=== PATIENT | female | born 2000 | race African-American/Black ===

== ENCOUNTER 2019-06-30 04:34 | Emergency (ER) | payer SELFPAY ==
[2019-06-30] MEDS ORDERED: Ketorolac Tromethamine 30 MG/ML VIAL ONE (04:42)
--- NOTE | 2019-06-30 07:28 | RAD ---
CHEST 1 VIEW: INDICATION: History of chest pain. COMPARISON: Prior exam dated 08/21/2009. FINDINGS: There are low lung volumes that accentuate the cardiac silhouette and pulmonary vasculature. No defi nite consolidation, pleural effusion, or pneumothorax is evident. No acute osseous abnormality is ev ident. IMPRESSION: No acute cardiopulmonary abnormality. Low lung volumes. POS: BH
--- NOTE | 2019-07-03 14:53 | EKG ---
Test Reason : Blood Pressure : / mmHG Vent. Rate : 084 BPM Atrial Rate : 084 BPM P-R Int : 138 ms QRS Dur : 078 ms QT Int : 362 ms P-R-T Axes : 049 026 023 degrees QTc Int : 427 ms Normal sinus rhythm with sinus arrhythmia No STEMI Normal ECG Confirmed by OSMAN MCNAMARA M.D. ([id number]), manuscript editor THAI BABCOCK ([id number] on 07/03/2019 2:52:56 PM Referred By: Confirmed By:OSMAN MCNAMARA M.D.
== END 2019-06-30 05:24 | disposition home or self-care (01) ==
LOC: ERS 04:34
DX: R07.89 Other chest pain (principal)
CPT/HCPCS: 71045; 93005; 94760; 96374; J1885

== ENCOUNTER 2019-09-25 03:57 | Emergency (ER) | payer SELFPAY ==
[2019-09-25 04:31] LABS: Bacteria/HPF 1+ HPF (None Seen); Bilirubin Negative (Negative); Blood, Urine 3+ (Negative); Clarity Turbid (Clear); Glucose, Urine (Dipstick) Normal (Negative); Ketone, Urine Negative (Negative); Leukocyte 500 Leu/uL (Negative); Nitrite Negative (Negative); Protein, Urine (Dipstick) 100 mg/dL (Neg-Trace); RBC/HPF Greater than 50 HPF (0-3); WBC/HPF Greater than 50 HPF (0-3)
== END 2019-09-25 04:53 | disposition home or self-care (01) ==
LOC: ERS 03:57
DX: O20.9 Hemorrhage in early pregnancy, unspecified (principal); O23.41 Unspecified infection of urinary tract in pregnancy, first trimester; Z3A.01 Less than 8 weeks gestation of pregnancy; Z79.899 Other long term (current) drug therapy
CPT/HCPCS: 81003; 81015; 87086

== ENCOUNTER 2019-11-03 18:51 | Emergency (ER) | payer MEDICAID, SELFPAY ==
[2019-11-03 19:33] LABS: #Eosinphils 0.1 thou/uL (0.0-0.7); #Lymphocytes 3.2 thou/uL (1.20-3.40); #Monocytes 0.5 thou/uL (0.11-0.59); #Neutrophils 5.3 thou/uL (1.40-6.50); %Basophils 0.2 % (0.0-1.0); %Eosinophils 0.6 % (0.0-10.0); %Lymphocytes 35.3 % (21.0-51.0); %Monocytes 5.9 % (0.0-10.0); Hemoglobin 12.2 g/dL (12.0-16.0); Mean Corpuscular HGB CONC 34.3 g/dL (32.0-36.0); Mean Corpuscular Hemoglobin 31.8 pg (27.0-31.0); Mean Corpuscular Volume 92.9 fL (78.0-98.0); Mean Platelet Volume 6.8 fL (7.4-10.4); Platelet Count 217 thou/uL (130-400); RBC Distribution Width 12.7 % (11.5-14.5); Red Blood Cell (RBC) Count 3.84 mill/uL (4.20-5.40); White Blood Cell (WBC) Count 9.1 thou/uL (4.8-10.8)
--- NOTE | 2019-11-03 20:45 | ULT ---
OB ULTRASOUND: Date: 11-03-2019 PROVIDED CLINICAL HISTORY: Vaginal bleeding FINDINGS: A single live intrauterine gestation is documented in breech presentation with heart rate of 14 7 beats/minute. Estimated gestational age based on today's examination is 18 weeks 4 days. Estimated weight is 244 +/- 35 grams. Amniotic fluid appears normal. The cervix appears adequate in lengt h. The placenta is posteriorly located, without evidence for previa. There is a focal circumscribed a sharyn of diminished echogenicity at the left lateral margin of the placenta that may reflect marginal a bruption. This measures approximately 2.6 cm in greatest dimension. The placenta appears otherwise no rmal. The visualized anatomy appears normal, with four-chamber heart, normal appearing kidneys, umbil ical cord insertion, and spine demonstrated. biometry: BPD 4.1 cm 18 weeks 3 days HC 16.2 cm 19 weeks 0 days AC 12.8 cm 18 weeks 3 days FL 2.8 cm 18 weeks 4 days IMPRESSION: 1. Single live intrauterine gestation as described above, 18 weeks 4 days by ultrasound. 2. Findings suggesting a small area of focal marginal placenta abruption. POS: SHAUNA
== END 2019-11-03 21:18 | disposition home or self-care (01) ==
LOC: ERS 18:51
DX: O20.0 Threatened abortion (principal); Z3A.18 18 weeks gestation of pregnancy
CPT/HCPCS: 36415; 76815; 84702; 85025; 86850; 86900; 86901

== ENCOUNTER 2019-11-06 14:22 | Emergency (ER) | payer MEDICAID, SELFPAY ==
[2019-11-06 15:26] LABS: #Eosinphils 0.1 thou/uL (0.0-0.7); #Lymphocytes 2.4 thou/uL (1.20-3.40); #Monocytes 0.5 thou/uL (0.11-0.59); #Neutrophils 5.1 thou/uL (1.40-6.50); %Basophils 0.4 % (0.0-1.0); %Eosinophils 0.6 % (0.0-10.0); %Lymphocytes 29.9 % (21.0-51.0); %Monocytes 6.3 % (0.0-10.0); %Neutrophils 62.7 % (42.0-75.0); Mean Corpuscular Hemoglobin 32.4 pg (27.0-31.0); Mean Corpuscular Volume 92.8 fL (78.0-98.0); Mean Platelet Volume 6.8 fL (7.4-10.4); Platelet Count 196 thou/uL (130-400); RBC Distribution Width 12.6 % (11.5-14.5); Red Blood Cell (RBC) Count 3.71 mill/uL (4.20-5.40); White Blood Cell (WBC) Count 8.1 thou/uL (4.8-10.8)
[2019-11-06 15:45] LABS: Anion Gap 7 mmol/L (10-20); BUN (Urea Nitrogen) 6 mg/dL (7.0-18.7); Calc. Creatinine Clearance 0 mL/min (70-130); Calcium 8.5 mg/dL (7.8-10.44); Carbon Dioxide 24 mmol/L (22-29); Chloride 108 mmol/L (98-107); Estimated GFR-MDRD Greater than 90; Glucose 81 mg/dL (70-105); Potassium 3.8 mmol/L (3.5-5.1); Sodium 135 mmol/L (136-145)
== END 2019-11-06 16:25 | disposition home or self-care (01) ==
LOC: ERS 14:22
DX: O20.0 Threatened abortion (principal); Z3A.18 18 weeks gestation of pregnancy
CPT/HCPCS: 36415; 80048; 85025; 99284

== ENCOUNTER 2019-12-02 08:19 | Emergency (ER) | payer MEDICAID, OTHER ==
[2019-12-02 10:14] LABS: Bilirubin Negative (Negative); Blood, Urine Trace (Negative); Clarity Turbid (Clear); Glucose, Urine (Dipstick) Normal (Negative); Ketone, Urine Negative (Negative); Leukocyte 500 Leu/uL (Negative); Nitrite Negative (Negative); Protein, Urine (Dipstick) 50 mg/dL (Neg-Trace); Specific Gravity, Urine 1.024 (1.002-1.036); Urobilinogen Normal mg/dL (Less than 2)
[2019-12-02 10:16] LABS: Bacteria/HPF 1+ HPF (None Seen)
== END 2019-12-02 10:48 | disposition home or self-care (01) ==
LOC: ERS 08:19
DX: O98.312 Other infections with a predominantly sexual mode of transmission complicating pregnancy, second trimester (principal); A60.00 Herpesviral infection of urogenital system, unspecified; O23.42 Unspecified infection of urinary tract in pregnancy, second trimester; Z3A.22 22 weeks gestation of pregnancy
CPT/HCPCS: 81003; 81015; 99283

== ENCOUNTER 2020-02-23 12:51 | Inpatient (IN) | payer OTHER ==
[2020-02-23 13:22] VITALS: BMI 41.1
[2020-02-23] MEDS ORDERED: hydrALAZINE 20 MG/ML VIAL SLOW IVP PRN (13:35)
--- NOTE | 2020-02-23 14:00 | PDOC.FPROB ---
FMR OB H&P: HPI - History of Present Illness Chief Complaint: Abdominal pain Indentification: 20yo @ 34.1 wks History of Present Illness: This morning developed right lateral abdominal pain that radiates to her right pelvis and wraps around to her right flank. Denies any other associated sx including dysuria, N/V/D, dyspepsia. She does note having [place] hx contractions for the last few weeks but states they are mild and this feels different. is significant for subchorionic hemorrhage causing 2 and 3T vaginal bleeding - pt denies any current bleeding. Chlamydia vaginal infection with negative NUHA a few months ago. Trichomonas vaginal infection and proteus UTI that pt did not orange picker rx for over course of a month. Pt did state she picked up her flagyl for her trich infection and completed it. Denies any vaginal bleeding/discharge, LOF, headaches, vision changes. Primary Care Physician: PCP: Juan HAWK FMR OB H&P: Current - Care : 4 Para: 2011 Gestational age: 34.1 Due date: 04/04/20 Dating Criteria: LMP and 18.4 wk sono Course/Complications: Subchorionic hemorrhage, low lying placenta, chlamydia, trich, hx of herpes - OB Labs Blood type: O RH: positive Antibody Screen: negative HIV: negative RPR: negative HepBsAg: negative Rubella: immune Gonorrhea: negative Chlamydia: negative (negative NUHA) 3 hour GTT: Passed GBS: unknown Additional labs: + Trich and BV - Anatomy Survey Anatomy survey: Borderline enlarged cisterna magna - Additional Ultrasound Additional: Growth US 1 week ago: [place] 84% FMR OB H&P: History - Past Medical History PMH: Herpes - OB History OB History: 2 term 1 miscarriage @ 8 weeks - [employer]ATE [employer]ER History [employer] History: Chlamydia infection - negative NUHA - Surgical History Sx History: Appy FMR OB H&P: Medications - Current Home Medications: Medication Instructions Recorded Confirmed Type Vitamin 1 tablet PO DAILY 01/05/16 02/23/20 History Allergies/Adverse Reactions: Allergies Allergy/AdvReac Type Severity Reaction Status Date / Time Penicillins Allergy Intermediate Rash Verified 05/26/19 19:48 FMR OB H&P: ROS - Review of Systems General: denies: fever/chills, fatigue Eyes: denies: vision changes, double vision ENT: denies: nasal congestion, rhinorrhea Cardiovascular: denies: palpitation, edema Respiratory: denies: cough, shortness of breath Gastrointestinal: reports: abdominal pain, cramping. denies: nausea, vomiting, diarrhea Genitourinary (Female): denies: incontinence, dysuria, polyuria, vaginal discharge, vaginal pain, vaginal bleeding Musculoskeletal: denies: pain, stiffness Neurologic: denies: numbness, weakness, headache Integumentary: denies: rash, lesions Hematologic/Lymphatic: denies: prolonged or excessive bleeding FMR OB H&P: Vital Signs - Maternal Vital signs: Vital Signs - First Documented Pulse Resp BP Pulse Ox 122 H 18 120/62 98 02/23/20 13:17 02/23/20 13:17 02/23/20 13:17 02/23/20 13:17 - Heart Tones Baseline: 155 Variability: moderate Acceleration: absent Deceleration: variable (single, small) Category: category 2 [place] contractions every: irritable baseline FMR OB H&P: Physical Exam - Physical Exam General: awake, alert and oriented HEENT: EOMI, MMM Neck: supple, FROM Heart: normal S1/S2, no edema Deviation from normal: Tachycardic General: CTAB, no respiratory distress Abdomen: soft, gravid Musculoskeletal: normal gait and station, pulses present Neurological: no focal deficit Skin: no rash, capillary refill <2 seconds Lymphatic: no unusual bruising or bleeding Psychiatric: intact recent and remote memory, good judgement and insight, normal mood and affect - Pelvic Exam SVE: Closed/Thick/High FMR OB H&P: A/P Disposition: Pyelonephritis - tachy, leukocytosis, CVA tenderness - start rocephin 2g q24 hr - 1L bolus and maintenance at 120ml x1 bag - scheduled acetaminophen Dispo: Admit to the floor for antibiotics and monitoring. Will continue to monitor contractions and assess for progression of labor. If any indications for labor progression will start steroids and consider nifedipine for tocolysis. Discussion: Date/Time: 02/23/20 2521 This H&P was discussed with Dr. Nino who agree with the above documentation and plan.
[2020-02-23] MEDS ORDERED: Acetaminophen 500 MG TAB PO SCH ×2 (14:15→22:45)
[2020-02-23] MEDS ORDERED: Sodium Chloride 0.9% 1,000 ML IV SCH ×2 (14:15→15:45)
[2020-02-23 14:29] LABS: #Eosinphils 0.1 thou/uL (0.0-0.7); #Lymphocytes 2.4 thou/uL (1.20-3.40); #Monocytes 1.1 thou/uL (0.11-0.59); %Basophils 0.3 % (0.0-1.0); %Eosinophils 0.5 % (0.0-10.0); %Lymphocytes 19.4 % (21.0-51.0); %Monocytes 8.4 % (0.0-10.0); %Neutrophils 71.3 % (42.0-75.0); Hemoglobin 11.5 g/dL (12.0-16.0); Mean Corpuscular HGB CONC 33.3 g/dL (32.0-36.0); Mean Corpuscular Hemoglobin 29.5 pg (27.0-31.0); Mean Corpuscular Volume 88.6 fL (78.0-98.0); Platelet Count 251 thou/uL (130-400); RBC Distribution Width 13.4 % (11.5-14.5); White Blood Cell (WBC) Count 12.6 thou/uL (4.8-10.8)
[2020-02-23 14:36] LABS: Bacteria/HPF 4+ HPF (None Seen); Bilirubin Negative (Negative); Blood, Urine Negative (Negative); Clarity Turbid (Clear); Glucose, Urine (Dipstick) 300 mg/dL (Negative); Ketone, Urine Negative (Negative); Leukocyte 500 Leu/uL (Negative); Nitrite Negative (Negative); Protein, Urine (Dipstick) 10 mg/dL (Neg-Trace); Specific Gravity, Urine 1.011 (1.002-1.036); Squamous Epithelial 0-3 HPF (0-3); Urobilinogen Normal mg/dL (Less than 2); WBC/HPF Greater than 50 HPF (0-3); pH, Urine 6.5 (5.0-9.0)
[2020-02-23 14:38] LABS: Urine Culture Reflex Yes Yes
[2020-02-23 14:43] LABS: ALT (SGPT) 7 U/L (8-55); AST (SGOT) 11 U/L (5-34); Albumin 3.7 g/dL (3.5-5.0); Alkaline Phosphatase 113 U/L (40-110); Anion Gap 15 mmol/L (10-20); BUN (Urea Nitrogen) 5 mg/dL (7.0-18.7); Bilirubin, Total 0.3 mg/dL (0.2-1.2); Calc. Creatinine Clearance 249 mL/min (70-130); Calcium 8.7 mg/dL (7.8-10.44); Carbon Dioxide 19 mmol/L (22-29); Chloride 107 mmol/L (98-107); Globulin 3.1 g/dL (2.4-3.5); Glucose 65 mg/dL (70-105); Potassium 3.9 mmol/L (3.5-5.1); Protein, Total 6.8 g/dL (6.0-8.3); Sodium 137 mmol/L (136-145)
[2020-02-23] MEDS ORDERED: cefTRIAXone\\ROCEPHIN 1 GM in Sodium Chloride 0.9% 100 ML IVPB SCH (15:00)
[2020-02-23] MEDS ORDERED: cefTRIAXone\\ROCEPHIN 2 GM in Sodium Chloride 0.9% 100 ML IVPB SCH (15:15)
--- NOTE | 2020-02-23 15:20 | ULT ---
US Biophysical Profile History: Vaginal bleeding Comparison: None. Findings: Real-time grayscale, color and spectral analysis of the gravid uterus was performed. Single viable intrauterine with heart rate documented at 136 bpm. The biophysical pro file score measures 8/8. Amniotic fluid index: 11 cm. Biparietal diameter: 8.62 cm, 34 week 5 day Head circumference: 30.66 cm, 34 week 1 day Abdominal circumference: 30.9 cm, 34 weeks 6 day Femur length: 6.79 cm, 34 weeks 6 day position is vertex and the placenta is posterior. No placenta previa. Impression: Normal single viable . Cervix not well seen. Biophysical profile score 8/8.
--- NOTE | 2020-02-23 15:29 | ULT ---
OB Ltd History: Biophysical profile Comparison: None. Findings: Biophysical profile score measures 8/8 Impression: Biophysical profile score measures 88
[2020-02-23] MEDS ORDERED: Ondansetron PF 4 MG/2 ML Vial IVP PRN (15:44)
[2020-02-23] MEDS ORDERED: Ondansetron ODT 4 MG TAB PO PRN (15:44)
[2020-02-23] MEDS ORDERED: Fluconazole 100 MG TAB PO SCH (16:15)
[2020-02-23] MEDS: metroNIDAZOLE 500 MG TAB PO SCH (21:58)
[2020-02-23] MEDS ORDERED: Morphine 4 MG/ML VIAL SLOW IVP SCH (22:45)
--- NOTE | 2020-02-23 23:19 | PDOC.BPN ---
<Daina Ortiz - Last Filed: 02/23/20 23:56> - Brief Progress Note Encounter Date: 02/23/20 Encounter Time: 23:00 20yo @ 34.1 wks, GISELE 04/04/2020 Labor -34.1 today -cl/th/hi @1730 -//hi @ 2300, labor, FHTs cat 1, cxn q4min -start betamethasone -stadol for pain -cefazolin for GBS ppx (unknown GBS status) due to PCN allergy -Recheck in 4 hours Pyelonephritis vs Renal lithiasis - tachy, leukocytosis, CVA tenderness - UA shows infection - rocephin 2g q24 hr, will DC as cefazolin will cover - LR increased to 250 ml/hr - Renal US ordered Trich and BV -Metronidazole 500 mg BID Candidiasis -1x dose fluconazole Dispo: Admitted for labor and pyelonephritis. Betamethasone and GBS ppx started. Continue to monitor. Discussion: <Willam De La Garza - Last Filed: 02/24/20 13:09> Addendum - Attending - Attending Attestation Date/Time: 02/24/20 1308 I personally evaluated the patient and discussed the management with the team. I agree with the History, Examination, Assessment and Plan documented above with any addition or exceptions noted below.
[2020-02-23] MEDS ORDERED: Butorphanol Tartrate 1 MG/ML VIAL ONE (23:29)
[2020-02-23] MEDS: Butorphanol Tartrate 1 MG/ML VIAL SLOW IVP PRN (23:31)
[2020-02-24 00:02] LABS: SARS-CoV-2 MS2 Positive; SARS-CoV-2 N Gene Negative; SARS-CoV-2 S Gene Negative; SARS-CoV-2 by NAA Not Detected (NotDetected); SARS-CoV-2 orf1ab Negative
[2020-02-24] MEDS ORDERED: Promethazine HCl 25 MG/ML VIAL IM PRN (00:03)
[2020-02-24] MEDS: Betamet Acet/Betamet Na Ph 30 MG/5 ML VIAL IM SCH ×2 (00:21→23:55)
[2020-02-24] MEDS: CEFAZOLIN 2 GM in Premix Bag 1 BAG IVPB SCH ×3 (00:22→00:30)
[2020-02-24] MEDS: Sodium Chloride 0.9% 1,000 ML IV SCH ×3 (00:28→09:53)
[2020-02-24] MEDS: Acetaminophen 650 MG Suppository PR SCH ×2 (04:05→07:36)
[2020-02-24] MEDS: Butorphanol Tartrate 1 MG/ML VIAL SLOW IVP PRN ×5 (04:11→21:56)
--- NOTE | 2020-02-24 04:22 | PDOC.BPN ---
- Brief Progress Note 20yo @ 34.2 wks, GISELE 04/04/2020 Labor -34.2 -cl/th/hi @1730 -4/th/hi @ 2300, labor, FHTs cat 1, cxn q4min -4/thick/high@ 0420: unchanged from 2300 -FHT: Cat 1, baseline of 130 -first dose of steroids at 0021 @ 02/23. Will need repeat dose tomorrow. -stadol for pain -cefazolin for GBS ppx (unknown GBS status) due to PCN allergy -Recheck in 4 hours Pyelonephritis vs Renal lithiasis - tachy, leukocytosis, CVA tenderness - UA shows infection - rocephin 2g q24 hr, will DC as cefazolin will now cover - LR increased to 250 ml/hr - Renal US ordered, official read pending Trich and BV -Metronidazole 500 mg BID Candidiasis -1x dose fluconazole Dispo: Admitted for labor and pyelonephritis. Betamethasone and GBS ppx started. Continue to monitor.
[2020-02-24 05:09] LABS: #Lymphocytes 1.4 thou/uL (1.20-3.40); #Monocytes 0.2 thou/uL (0.11-0.59); #Neutrophils 10.8 thou/uL (1.40-6.50); %Basophils 0.2 % (0.0-1.0); %Eosinophils 0.1 % (0.0-10.0); %Monocytes 1.7 % (0.0-10.0); Hemoglobin 10.6 g/dL (12.0-16.0); Mean Corpuscular HGB CONC 32.3 g/dL (32.0-36.0); Mean Corpuscular Hemoglobin 27.9 pg (27.0-31.0); Mean Corpuscular Volume 86.4 fL (78.0-98.0); Mean Platelet Volume 6.9 fL (7.4-10.4); Platelet Count 232 thou/uL (130-400); RBC Distribution Width 13.3 % (11.5-14.5); Red Blood Cell (RBC) Count 3.78 mill/uL (4.20-5.40); White Blood Cell (WBC) Count 12.4 thou/uL (4.8-10.8)
[2020-02-24 05:28] LABS: Anion Gap 13 mmol/L (10-20); BUN (Urea Nitrogen) Less than 4 mg/dL (7.0-18.7); Calc. Creatinine Clearance 249 mL/min (70-130); Calcium 8.3 mg/dL (7.8-10.44); Carbon Dioxide 18 mmol/L (22-29); Chloride 111 mmol/L (98-107); Glucose 138 mg/dL (70-105); Potassium 3.9 mmol/L (3.5-5.1); Sodium 138 mmol/L (136-145)
[2020-02-24 05:48] LABS: HBSAg Index 0.17 S/CO (0-0.99); Hep B Surf Ag Non-Reactive S/CO (NonReactive); Syphilis Antibody Nonreactive (Nonreactive); Syphilis Antibody Index 0.03 S/CO (<1.00 Non-Reactive)
--- NOTE | 2020-02-24 07:37 | ULT ---
PRELIMINARY REPORT/[facility]/EMERGENCY AFTER HOURS PROCEDURE EXAM: US Retroperitoneum complete, Renal. CLINICAL HISTORY: HX: SEVER RT FLANK PAIN, 34WKS PREG TECHNIQUE: Real-time ultrasound of the retroperitoneum (complete) with image documentation. COMPARISON: None provided. FINDINGS: RIGHT KIDNEY: No renal stone, or mass visualized. Measures 14.2 x 6.6 x 5.7 cm and demonstrates moderate hydronep hrosis LEFT KIDNEY: No renal stone, or mass visualized. Measures 12.0 x 5.7 x 4.5 cm and demonstrates mild hydronephros is BLADDER: No evidence for calculi or masses. Bilateral ureteral jets are seen IMPRESSION: Bilateral hydronephrosis, moderate on the RIGHT and mild on the LEFT ELECTRONICALLY SIGNED BY: Vincent Guerrero MD Feb 24, 2020 1:31:46 AM DISTRICT REPRESENTATIVE This report is intended for review by the ordering physician only, in accordance of law. If you recei ve this report in error, please call [facility] at [phone]. FINAL REPORT US Renal Bilateral STANDARD History: Pain Comparison: None. Findings/Impression: Concordant with the initial report. Transcribed Date/Time: 02/24/2020 8:12 AM
[2020-02-24] MEDS ORDERED: ceFAZolin 1 GM/D5W 1 GM in Premix Bag 1 BAG IVPB SCH (08:00)
[2020-02-24] MEDS ORDERED: Clindamycin/D5W 900 MG in Premix Bag 1 BAG IVPB SCH (08:00)
[2020-02-24] MEDS: Prenatal Vitamin 1 TAB PO SCH (08:15)
[2020-02-24] MEDS: metroNIDAZOLE 500 MG TAB PO SCH ×2 (08:15→21:41)
--- NOTE | 2020-02-24 10:09 | PDOC.LDPN ---
Labor & Delivery Progress Note - Subjective Subjective: other (pain in RLQ, uncomfortable) - Objective Vital signs reviewed and normal: yes General: NAD Uterine fundus: non tender (is moderately TTP over RLQ, and mild TTP over Right CVA) SVE: by Marek Dilation: 1.5 on inner os (outer os is 4) Effacement: 0% Station: -3 FHT: category 1, variability present [place] contractions every: 7-8 min - Assessment (1) Pyelonephritis Code(s): N12 - TUBULO-INTERSTITIAL NEPHRITIS, NOT SPCF ACUTE OR CHRONIC Current Visit: Yes Status: Acute (2) Trichomonas infection Current Visit: Yes Status: Acute (3) Bacterial vaginosis Code(s): N76.0 - ACUTE VAGINITIS; B96.89 - OTH BACTERIAL AGENTS THE CAUSE OF DISEASES CLASSD ELSWHR Current Visit: Yes Status: Acute (4) Nica vaginitis Code(s): B37.3 - CANDIDIASIS OF VULVA AND VAGINA Current Visit: Yes Status: Acute (5) E. coli infection Current Visit: Yes Status: Acute Plan: continue plan of care -: 20yo @ 34.2 wks, GISELE 04/04/2020 Labor -34.2 wga today -cl/th/hi @1730 -4/th/hi @ 2300, labor, FHTs cat 1, cxn [id number] OUTER OS IS 4, INNER OS is 1 -1/thick/high@ 0420: unchanged from 2300 -1 (inner os)/thick/high @ 0900, unchanged -FHT: Cat 1, baseline of 140, contractions q7-8 min -first dose of steroids at 0021 @ 02/23. Will need repeat dose tomorrow. -stadol for pain -cefazolin for GBS ppx (unknown GBS status) due to PCN allergy -Recheck in 4 hours Pyelonephritis vs Renal lithiasis - tachy, leukocytosis, CVA tenderness - Urine culture results preliminary for presumptive E. Coli infection - rocephin 2g q24 hr, will DC as cefazolin will now cover - LR increased to 250 ml/hr - Renal US: no stone seen, moderate hydronephrosis on right, mild hydronephrosis on left Trich and BV -Metronidazole 500 mg BID Candidiasis -1x dose fluconazole Dispo: Admitted for labor and pyelonephritis. Betamethasone and antibiotics started. Continue to monitor on L&D.
[2020-02-24] MEDS ORDERED: Butorphanol Tartrate 1 MG/ML VIAL ONE (12:06)
--- NOTE | 2020-02-24 14:24 | PDOC.LDPN ---
Labor & Delivery Progress Note - Subjective Subjective: comfortable (after receiving stadol) - Objective Vital signs reviewed and normal: yes General: NAD SVE: deferred FHT: category 1 [place] contractions every: 8min -: 20yo @ 34.2 wks, GISELE 04/04/2020 @ 34wks -34.2 wga today -cl/th/hi @1730 -4/th/hi @ 2300, labor, FHTs cat 1, cxn [id number]--[id number] OUTER OS IS 4, INNER OS is 1 -1/thick/high@ 0420: unchanged from 2300 -1 (inner os)/thick/high @ 0900, unchanged -@ 1300: deferred check at this time due to no change last 3 checks and ctx spaced out -FHT: Cat 1, baseline of 140, contractions q7-8 min -first dose of steroids at 0021 @ 02/23. Will need repeat dose tomorrow. -stadol for pain -cefazolin for GBS ppx (unknown GBS status) due to PCN allergy -Recheck in 4 hours Pyelonephritis vs Renal lithiasis - tachy, leukocytosis, CVA tenderness - Urine culture results preliminary for presumptive E. Coli infection - rocephin 2g q24 hr, will DC as cefazolin will now cover - LR increased to 250 ml/hr - Renal US: no stone seen, moderate hydronephrosis on right, mild hydronephrosis on left Trich and BV -Metronidazole 500 mg BID Candidiasis -1x dose fluconazole Dispo: Admitted for abdominal pain 2/2 pyelonephritis vs nephrolithiasis. Continue to monitor on L&D.
[2020-02-24] MEDS ORDERED: cefTRIAXone\\ROCEPHIN 2 GM in Sodium Chloride 0.9% 100 ML IVPB SCH ×2 (15:00→16:15)
--- NOTE | 2020-02-24 20:56 | PDOC.BPN ---
- Brief Progress Note Encounter Date: 02/24/20 Encounter Time: 21:00 Patient sleeping, resting comfortably in bed. Does not endorse contractions or vaginal pressure. Good movement, no LOF, VB. Reactive strip, baseline at 130bpm. Patient is afebrile. Other vitals WNL. Will continue current plan of care, however will switch to intermittent monitoring on the floor. Plan discussed with Dr Ortiz and Dr De La Garza who agree with the above plan.
[2020-02-25] MEDS: Butorphanol Tartrate 1 MG/ML VIAL SLOW IVP PRN ×6 (03:08→19:15)
[2020-02-25] MEDS: Acetaminophen 500 MG TAB PO PRN ×2 (04:06→14:53)
[2020-02-25] MEDS: diphenhydrAMINE 50 MG/ML VIAL IVP SCH (04:37)
--- NOTE | 2020-02-25 06:47 | PDOC.OBAPN ---
FMR OB AP PN: Sub - Interval History Hospital Day: 3 Chief Complaint: Abdominal and Back pain Indentification: 20 yo @ 34.3 wga Interval History: Continues to complain of moderate abdominal & back pain. Denies dysuria. FMR OB AP PN: Obj - Maternal Vital signs: BP: [] HR: [] RR: [] Tmax: [] Pox: []% on [] Wt: [] FMR OB AP PN: A/P - Problem List (1) Pyelonephritis Current Visit: Yes Status: Acute Code(s): N12 - TUBULO-INTERSTITIAL NEPHRITIS, NOT SPCF ACUTE OR CHRONIC (2) Trichomonas infection Current Visit: Yes Status: Acute (3) Bacterial vaginosis Current Visit: Yes Status: Acute Code(s): N76.0 - ACUTE VAGINITIS; B96.89 - OTH BACTERIAL AGENTS THE CAUSE OF DISEASES CLASSD ELSWHR (4) Nica vaginitis Current Visit: Yes Status: Acute Code(s): B37.3 - CANDIDIASIS OF VULVA AND VAGINA (5) E. coli infection Current Visit: Yes Status: Acute Discussion: Date/Time: 02/25/20 0646 This H&P was discussed with [] and [] who agree with the above documentation and plan. - Allergies/Adverse Reactions Allergies Allergy/AdvReac Type Severity Reaction Status Date / Time Penicillins Allergy Intermediate Rash Verified 05/26/19 19:48 - Home Medications Medication Instructions Recorded Confirmed Type Vitamin 1 tablet PO DAILY 01/05/16 02/23/20 History - History PMHx: PSHx: FHx: Social:
--- NOTE | 2020-02-25 06:56 | PDOC.LDPN ---
Labor & Delivery Progress Note - Subjective Subjective: other (abdominal & back pain) - Objective Vital signs reviewed and normal: yes (99.4F, HR 104, BP 124/75, RR 20) General: NAD (Heart RRR, Lungs CTAB) Uterine fundus: non tender (RLQ and LLQ TTP, fundus nontender, CVA tenderness on Right, no edema) FHT: category 1 (intermittent monitoring) [place] contractions every: random - Assessment (1) Pyelonephritis Code(s): N12 - TUBULO-INTERSTITIAL NEPHRITIS, NOT SPCF ACUTE OR CHRONIC Current Visit: Yes Status: Acute (2) Trichomonas infection Current Visit: Yes Status: Acute (3) Bacterial vaginosis Code(s): N76.0 - ACUTE VAGINITIS; B96.89 - OTH BACTERIAL AGENTS THE CAUSE OF DISEASES CLASSD ELSWHR Current Visit: Yes Status: Acute (4) Nica vaginitis Code(s): B37.3 - CANDIDIASIS OF VULVA AND VAGINA Current Visit: Yes Status: Acute (5) E. coli infection Current Visit: Yes Status: Acute Plan: continue plan of care -: 20yo @ 34.2 wks, GISELE 04/04/2020 Patient feeling slightly better this morning. Continues to complain of lower abdominal and back pain. Denies dysuria or burning with urination. Has been drinking liquids and eating few crackers, otherwise poor PO intake. Was able to sleep some last night after given stadol, tylenol, and benadryl. @ 34wks -34.3 wga today -1 (inner os)/thick/high @ 0900 on 02/23, unchanged on the prior 3 checks and ctx spaced out -FHT on 02/23 pm shift: Cat 1, contractions intermittent -completed 2 doses of betamethasone -stadol & tylenol for pain -cefazolin for GBS ppx (unknown GBS status) due to PCN allergy, discontinued and switched to Rocephin for better coverage of E. Coli and not currently in labor Pyelonephritis vs Renal lithiasis vs complicated UTI - tachy, leukocytosis, CVA tenderness - Urine culture results positive for E. Coli infection, sensitive to all - rocephin 2g q24 hr - LR @ 75 mL/hr - Renal US: no stone seen, moderate hydronephrosis on right, mild hydronephrosis on left Trich and BV -Metronidazole 500 mg BID Candidiasis -1x dose fluconazole Dispo: Admitted to [facility] for abdominal pain 2/2 pyelonephritis vs nephrolithiasis. Continue intermittent monitoring. Continue antibiotics. Anticipate discharge in next 48 hours. Addendum - Attending - Attending Attestation Date/Time: 02/25/20 6466 I personally evaluated the patient and discussed the management with Dr. Jara I agree with the History, Examination, Assessment and Plan documented above with any addition or exceptions noted below - Still having some right lower quadrant colicky pain. Afebrile VSS A/P: 1) E. coli pyelonephritis- pedraza sensitive on culture- will give IV rocephin today nad then convert to po abx. 2) labor- s/p steroids x 2 doses; no further cervical change.
[2020-02-25] MEDS: Lactated Ringer's 1,000 ML IV SCH ×2 (07:45→07:49)
[2020-02-25] MEDS: metroNIDAZOLE 500 MG TAB PO SCH ×2 (08:01→21:30)
[2020-02-25] MEDS: Prenatal Vitamin 1 TAB PO SCH (08:01)
[2020-02-25] MEDS ORDERED: Lactated Ringer's 1,000 ML IV SCH (14:15)
[2020-02-25] MEDS ORDERED: cefTRIAXone\\ROCEPHIN 2 GM in Sodium Chloride 0.9% 100 ML IVPB SCH (15:00)
[2020-02-25 16:44] VITALS: BP 138/75; TEMP 98.4
--- NOTE | 2020-02-25 17:09 | PDOC.BPN ---
<Freda Dwyer - Last Filed: 02/25/20 17:40> - Brief Progress Note Encounter Date: 02/25/20 20yo @ 34.2wks diagnosed with pyelonephritis. UCx grew e. coli pansensitive. Today is day 3 of treatment with rocephin. Throughout the day today the patient has continued to complain of abdominal pain. Earlier in admission the pain was located in RLQ but today she reports it as located on both RLQ and LLQ. She reports increases pain and contractions. Previously her pain was controlled with tylenol and stadol but today it has not provided relief. She was placed on the monitor and baby had normal reactivity for age. Ctx q2-4min. SVE was unchanged from previous checks /. VS: SBP 138, HR 104, afebrile. Abd exam: soft, diffusely tender to palpation, no rigidity or guarding. Pending pelvic ultrasound. Urology was consulted and Dr Kwong recommended low dose CT stone protocol. Weighed risks vs benefits of 3T CT and felt it is best patient care to proceed. Will transfer back to obstetrics for closer monitoring. Plan was discussed with patient including risks and benefits of CT scan. She voiced understanding and agreed to plan. <Willam De La Garza - Last Filed: 02/25/20 19:58> Addendum - Attending - Attending Attestation Date/Time: 02/25/201956 I was called by Dr. Savage and the team to discuss. I was under the impression that her pain had resolved but apparently is persistent. Stone > torsion > abruption or other etiology, such as PID. D/w Uro per Dr. Savage, who has seen the patient today.
--- NOTE | 2020-02-25 18:03 | CT ---
CT Stone Protocol: 02/25/2020 5:35 PM HISTORY: Flank pain in a female. COMPARISON: Renal ultrasound 02/23/2020 TECHNIQUE: Multiple contiguous axial images were obtained and a CT of the abdomen and pelvis without IV contrast . Coronal and sagittal reformats were performed. FINDINGS: This examination is limited for the evaluation of solid organs and vascular structures due to the lac k of intravenous contrast. Lower Chest: within normal limits. Abdomen: Liver: within normal limits. Bile Ducts: Normal caliber. Gallbladder: No calcified gallstones. Normal caliber wall. Pancreas: within normal limits. Spleen: within normal limits. Adrenals: within normal limits. Kidneys: Moderate right and mild left hydronephrosis. Pelvis: Reproductive Organs: The fetus is seen in the uterus in vertex presentation. Ureters: Moderate right hydroureter down to the level of the uterus low in the pelvis. No calcificati ons identified in the ureters. Bladder: within normal limits. Bowel: Normal caliber. Mesenteric Lymph Nodes: No enlarged mesenteric lymph nodes. Peritoneum: No ascites or free air, no fluid collection. Vessels: Normal caliber aorta Retroperitoneum: within normal limits. Abdominal Wall: within normal limits. Bones: Unremarkable. IMPRESSION: Bilateral hydronephrosis is likely secondary to compression of the uterus and head on the dista l ureters.
--- NOTE | 2020-02-25 19:35 | ULT ---
EXAM: Pelvic ultrasound HISTORY: Pelvic pain. Evaluate for ovarian torsion. COMPARISON: CT abdomen/pelvis 02/25/2020 TECHNIQUE: Multiple grayscale and color Doppler images were obtained in a transvaginal pelvic ultraso und. Spectral analysis of the Doppler waveforms of the ovaries were performed. FINDINGS: CERVIX: No evidence of nabothian cysts. UTERUS: Enlarged containing a fetus. A small amount of free fluid is seen in the pelvis. RIGHT OVARY: Not visualized. LEFT OVARY: Normal flow without focal mass. IMPRESSION: No evidence of left ovarian torsion.
[2020-02-25] MEDS ORDERED: diphenhydrAMINE 50 MG in Sodium Chloride 0.9% 50 ML IVPB PRN (20:52)
--- NOTE | 2020-02-25 21:48 | CON ---
DATE OF CONSULTATION: 02/25/2020 REQUESTING PHYSICIAN: Freda Dwyer MD REASON FOR CONSULTATION: Flank pain, hydroureteronephrosis, and pyelonephritis. HISTORY OF PRESENT ILLNESS: Ms. Rodríguez is a 20-year-old, 34 week female with no past urologic history, the patient began having right-sided flank pain associated with nausea and vomiting two days ago. The patient was evaluated and was admitted. She also was having dysuria and was having some [place] contractions over the past several weeks, which have worsened recently. Urine culture was obtained and this demonstrated E. coli. The patient has been on Rocephin since the time of her admission. The patient's flank pain was poorly controlled. An ultrasound was performed, which demonstrated right greater than left hydroureteronephrosis with no obvious urolithiasis. Urology was consulted for further evaluation. At this point, a CT scan was requested using low-dose radiation protocol. The patient states that her pain has improved slightly, but continues to be significant. Nausea has improved. No fevers. No history of febrile urinary tract infection in the past. No history of urolithiasis. No previous recurrent UTIs. No other complaints. REVIEW OF SYSTEMS: Full 12-point review of systems was performed and is negative other than that mentioned in HPI. PAST MEDICAL HISTORY: None. PAST SURGICAL HISTORY: None. FAMILY HISTORY: Noncontributory. SOCIAL HISTORY: No current alcohol, tobacco, or illicit drugs. ALLERGIES: PENICILLIN. HOME MEDICATIONS: vitamin. PHYSICAL EXAMINATION: VITAL SIGNS: Temperature 98.4, pulse 98, respirations 16, blood pressure 118/64, and oxygen saturation 99% on room air. GENERAL: She is awake and alert, and oriented x3, in no apparent distress. HEENT: Normocephalic and atraumatic. NECK: Supple. No masses or lymphadenopathy. CARDIOVASCULAR: Regular rate and rhythm. PULMONARY: Breathing unlabored. ABDOMEN: Soft. Mild right CVA tenderness. No left CVA tenderness. No suprapubic tenderness to palpation. Gravid uterus consistent with a 34 week . EXTREMITIES: Warm and well perfused. No edema. NEUROLOGIC: No focal deficits. LABORATORY DATA: White blood cell count 12.4, hemoglobin 10.6, hematocrit 32.7, and platelets 232. Sodium 138, potassium 3.9, chloride 111, bicarb 18, BUN 13, and creatinine 0.57. Microbiology, urinalysis with E. coli, greater than 100,000 colony-forming units, pansensitive. RADIOLOGY DATA: CT of the abdomen and pelvis demonstrates bilateral hydroureteronephrosis likely secondary to compression of the uterus on the distal ureters, right greater than left. There is no urolithiasis present. These films were reviewed and agreed with radiologist's interpretation. ASSESSMENT: A 20-year-old female with Escherichia coli urinary tract infection, flank pain, and possible pyelonephritis. PLAN: I reviewed the imaging and laboratory data with the patient and her mother in detail. I explained that there is no stone or significant obstruction present. She does have some physiologic hydroureteronephrosis of related to uterine compression. The patient is on culture specific antibiotics. Recommend continuing this. Her pain should improve with some time. There have been slow improvement since her admission, but she continues to have significant amounts of pain. She will require two week course of antibiotics. There is no indication for urologic intervention at this time. Thank you for allowing me to participate in the care of this patient. Job ID: [id number]
[2020-02-26] MEDS: Butorphanol Tartrate 1 MG/ML VIAL SLOW IVP PRN ×2 (02:05→09:04)
[2020-02-26] MEDS: diphenhydrAMINE 50 MG/ML VIAL IVP SCH (06:10)
[2020-02-26] MEDS: metroNIDAZOLE 500 MG TAB PO SCH (09:07)
[2020-02-26] MEDS: Prenatal Vitamin 1 TAB PO SCH (09:07)
--- NOTE | 2020-02-26 09:53 | PDOC.LDPN ---
Labor & Delivery Progress Note - Subjective Subjective: other (lower abdominal discomfort, painful contractions) - Objective Vital signs reviewed and normal: yes General: NAD, resting Uterine fundus: non tender SVE: closed/th/high at 0200 by RN Dilation: 0 Effacement: 0% Station: -3 FHT: category 1, variability present [place] contractions every: 7-8 min Other exam findings: mildly TTP over RLQ & LLQ, no edema, Heart RRR, Lungs CTAB - Assessment (1) Pyelonephritis Code(s): N12 - TUBULO-INTERSTITIAL NEPHRITIS, NOT SPCF ACUTE OR CHRONIC Current Visit: Yes Status: Acute (2) Trichomonas infection Current Visit: Yes Status: Acute (3) Bacterial vaginosis Code(s): N76.0 - ACUTE VAGINITIS; B96.89 - OTH BACTERIAL AGENTS THE CAUSE OF DISEASES CLASSD ELSWHR Current Visit: Yes Status: Acute (4) Nica vaginitis Code(s): B37.3 - CANDIDIASIS OF VULVA AND VAGINA Current Visit: Yes Status: Acute (5) E. coli infection Current Visit: Yes Status: Acute Plan: continue plan of care -: 20yo @ 34.4 wks, GISELE 04/04/2020 Patient feeling slightly better this morning. Continues to complain of lower abdominal pain, left greater than right. Describes as cramping, has sharper pain only with contractions. Contractions have spaced back out to every 7-8 minutes or so. Pain is relieved with Stadol and Benadryl. Patient refusing Tylenol. Denies dysuria or burning with urination. Has had good PO intake with meals yesterday, has not eaten yet this morning. Was able to sleep some last night after given benadryl. @ 34 wks -34.4 wga today -closed/thick/high @ 0200 on 02/25, unchanged on the prior 3 checks and ctx spaced out -FHT currently Cat 1, contractions about every 7-8 min -completed 2 doses of betamethasone on 02/24 -stadol & tylenol for pain -Rocephin x 3 days for coverage of E. Coli, will transition to PO antibiotic today UTI (most likely) vs Pyelonephritis (less likely) vs Renal lithiasis - tachy, leukocytosis, CVA tenderness - Urine culture results positive for E. Coli infection, sensitive to all - rocephin 2g q24 hr x 3 days completed on 02/24, transition to oral ABx today - LR @ 75 mL/hr - Renal US: no stone seen, moderate hydronephrosis on right, mild hydronephrosis on left - CT with stone protocol negative - TVUS normal, hydronephrosis likely due to compression on ureters bilaterally by uterus - Urology, Dr. Kwong consulted, appreciate recs--patient needs 2 weeks of oral antibiotics Trich and BV -Metronidazole 500 mg BID Candidiasis -1x dose fluconazole Dispo: Admitted to L&D for abdominal pain 2/2 UTI vs nephrolithiasis. Attempting to achieve better pain control today. Continue monitoring. Continue antibiotics. Anticipate discharge in next 24 hours. Addendum - Attending - Attending Attestation Date/Time: 02/26/20 1310 I personally evaluated the patient and discussed the management with Dr. Jara I agree with the History, Examination, Assessment and Plan documented above with any addition or exceptions noted below - Patient still having discomfort in RLQ and some in LLQ. Studies reviewed from yesterday and appreciate urology input/assistamce. A/P: 1) E. coli UTI - has received 3 doses of rocephin; will change to po keflex. 2) Pelvic pain - studies negative; suspect some of it may be discomfort of . Will give trial of flexeril. 3) BV - continue flagyl
[2020-02-26] MEDS ORDERED: diphenhydrAMINE 50 MG CAP PO PRN (11:22)
[2020-02-26] MEDS ORDERED: Cyclobenzaprine 10 MG TAB PO PRN (11:23)
[2020-02-26] MEDS ORDERED: Cyclobenzaprine 10 MG TAB PO SCH (11:30)
[2020-02-26] MEDS ORDERED: Cephalexin 250 MG CAP PO SCH ×3 (12:45→21:00)
[2020-02-26] MEDS ORDERED: Acetaminophen 500 MG TAB PO SCH (14:00)
[2020-02-26 18:53] LABS: Chlamydia by PCR Not Detected (NotDetected); GC by PCR Not Detected (NotDetected)
--- NOTE | 2020-02-27 18:52 | DIS ---
DATE OF ADMISSION: 02/23/2020 DATE OF DISCHARGE: 02/26/2020 RESIDENT: Isaura Jara DO ADMITTING ATTENDING: Willam De La Garza MD DISCHARGE ATTENDING: Marylu Miles MD CONSULT: Urology, Dr. Kwong. PROCEDURES PERFORMED: 1. Ultrasound on February 23, 2020: Biophysical profile score of 8/8. Single viable intrauterine . Placenta posterior. position, vertex. 2. Renal ultrasound on February 23, 2020: Bilateral hydronephrosis, moderate on the right and mild on the left. 3. Transvaginal ultrasound on February 25, 2020: No evidence of left ovarian torsion. Right ovary not visualized. 4. Abdomen and pelvis CT with stone protocol on February 25, 2020: Bilateral hydronephrosis is likely secondary to compression of the uterus and head on the distal ureters. No evidence of any stones or calcifications identified. PRIMARY DIAGNOSES: 1. Urinary tract infection, most likely. 2. Pyelonephritis, low suspicion. 3. at 34 weeks and 4 days at the time of discharge. SECONDARY DIAGNOSES: 1. Renal lithiasis, suspected. 2. Trichomonas infection. 3. Bacterial vaginosis infection. 4. Vaginal candidiasis. DISCHARGE MEDICATIONS: 1. vitamins. 2. Benadryl 50 mg p.o. q.6 hours p.r.n. 3. Cyclobenzaprine HCl 5 mg p.o. t.i.d. p.r.n. 4. Metronidazole 500 mg p.o. b.i.d. for three additional days. 5. Keflex 500 mg p.o. b.i.d. for 14 more days. 6. Acetaminophen 1000 mg p.o. q.8 hours p.r.n. DISCONTINUED MEDICATIONS: None. HISTORY OF PRESENT ILLNESS/HOSPITAL COURSE: The patient is a 20-year-old, G4, P2-0-1-2 at 34 weeks' gestational age, who presented to Labor and Delivery on February 23, 2020, with complaint of right lateral abdominal pain that radiated to her right pelvis and wrapped around to her right flank. She denied any other symptoms at that time. The patient had history of Chlamydia, vaginal infection with a negative test of cure a few months ago. Also had Trichomonas vaginal infection and Proteus UTI that the patient did not miner pick prescriptions for over the course of at least the past month. Based on the patient's history and physical exam findings, pyelonephritis was suspected and the patient was started on Rocephin 2 g and given IV fluids. She was admitted to Labor and Delivery for antibiotics and further monitoring. The patient also had intermittent contractions that were initially every 2 to 3 minutes that then spaced out to about every 10 minutes. The patient was started on betamethasone and given two total doses over 24-hour period due to suspicion of early labor upon admission. The following morning, the patient continued to feel uncomfortable. Her cervical check exams were consistently 1, thick, high throughout the course of her stay. The patient initially required Stadol for pain, which was continued over the following few days. On day of discharge, she had good pain control with Tylenol, Flexeril, and Benadryl. The patient was started on metronidazole for her Trichomonas and bacterial vaginosis infections. She was given fluconazole for her candidiasis infection. The patient was initially given cefazolin for GBS prophylaxis, but after labor was ruled out, this was discontinued and Rocephin was restarted for a total therapy course of 3 days of Rocephin. On day 3 of admission, the patient had progressive right lower quadrant and left lower quadrant pain. Further imaging studies were performed to rule out the possibility of ovarian torsion or other abdominal etiologies. All imaging has resulted negative for any pathology. There was some bilateral hydronephrosis suspected to be secondary due to compression of the ureters by the fetus. On the morning of February 26, 2020, the patient's discomfort was improving. Cultures resulted positive for E coli urinary tract infection. She was transitioned to p.o. Keflex, which will need to be continued for approximately 2 weeks per Urology recommendations. The patient was also given a trial of Flexeril for suspected pelvic pain from discomfort of . Flagyl will need to be continued for an additional 3 days for a total of 7-day course. The patient will need close followup with her PCP at [facility] on March 02. DISPOSITION: Stable. DISCHARGE INSTRUCTIONS: 1. Location: Home. 2. Diet: Regular. 3. Activity: As tolerated. 4. Follow up at [facility] on March 02, 2020. Job ID: [id number]
== END 2020-02-26 17:20 | disposition home health service (06) | DRG 831 ==
LOC: L&D/OP 12:51 → L&D 15:44 → OBSVTOIN 15:44 → UNDOADMOB 17:06 → L&D 17:06 → 3SW 02-24 21:54 → L&D 02-25 19:28
PROVIDERS: ADMIT Student in an Organized Health Care Education/Training Program; ATTEND Student in an Organized Health Care Education/Training Program
DX: O23.43 Unspecified infection of urinary tract in pregnancy, third trimester (principal); O60.03 Preterm labor without delivery, third trimester; O98.313 Other infections with a predominantly sexual mode of transmission complicating pregnancy, third trimester; O98.813 Other maternal infectious and parasitic diseases complicating pregnancy, third trimester; N13.6 Pyonephrosis; Z20.828 Contact with and (suspected) exposure to other viral communicable diseases; B96.20 Unspecified Escherichia coli [E. coli] as the cause of diseases classified elsewhere; A59.01 Trichomonal vulvovaginitis; B37.3 Candidiasis of vulva and vagina; N20.0 Calculus of kidney; B96.89 Other specified bacterial agents as the cause of diseases classified elsewhere; Z3A.34 34 weeks gestation of pregnancy
CPT/HCPCS: 36415; 51701; 74176; 76770; 76815; 76819; 76856; 80048; 80053; 81001; 85025; 86780; 86850; 86900; 86901; 87077; 87086; 87186; 87340; 87480; 87491; 87510; 87591; 87635; 87660; 99285; J0595; J0690; J0696; J0702; J1200; J2270; J2550; J3490; U0003

== ENCOUNTER 2020-03-26 08:15 | Outpatient (CLI) | payer OTHER ==
[2020-03-27 00:15] LABS: SARS-CoV-2 PCR by NAA Not Detected (NotDetected)
== END 2020-03-26 08:16 | disposition home or self-care (01) ==
LOC: LABBT 08:15
PROVIDERS: ATTEND Obstetrics & Gynecology
DX: Z01.812 Encounter for preprocedural laboratory examination (principal); Z20.822 Contact with and (suspected) exposure to COVID-19
CPT/HCPCS: 87635; U0003; U0005

== ENCOUNTER 2020-03-29 19:15 | Inpatient (IN) | payer OTHER ==
[~2020-03-29 19:15] MED LIST: Terbutaline Sulfate 1 MG/ML VIAL ONE
[2020-03-29 20:06] VITALS: BMI 38.0
[2020-03-29] MEDS ORDERED: Lidocaine 1% (PF) 30 ML VIAL SC PRN (21:08)
[2020-03-29] MEDS ORDERED: Ondansetron PF 4 MG/2 ML Vial IVP PRN (21:08)
[2020-03-29] MEDS ORDERED: NS / Oxytocin 40 units/1000ml 1,000 ML IV PRN (21:08)
[2020-03-29] MEDS ORDERED: hydrALAZINE 20 MG/ML VIAL SLOW IVP PRN (21:08)
[2020-03-29] MEDS ORDERED: Promethazine HCl 25 MG/ML VIAL IM PRN (21:08)
[2020-03-29] MEDS: Lactated Ringer's 1,000 ML IV SCH (21:15)
[2020-03-29 21:42] LABS: Hemoglobin 10.8 g/dL (12.0-16.0); Mean Corpuscular HGB CONC 33.2 g/dL (32.0-36.0); Mean Corpuscular Hemoglobin 27.5 pg (27.0-31.0); Mean Corpuscular Volume 82.8 fL (78.0-98.0); Mean Platelet Volume 7.6 fL (7.4-10.4); Platelet Count 229 thou/uL (130-400); RBC Distribution Width 14.6 % (11.5-14.5); Red Blood Cell (RBC) Count 3.93 mill/uL (4.20-5.40); White Blood Cell (WBC) Count 8.8 thou/uL (4.8-10.8)
--- NOTE | 2020-03-29 22:03 | PDOC.FPROB ---
FMR OB H&P: HPI - History of Present Illness Chief Complaint: eIOL History of Present Illness: Pt is a 20yo @ 39.1wks who presents for eIOL. She states she has been having contractions for weeks. Denies LOF, vaginal bleeding. +FM. Feels some vaginal pressure. Current is significant for subchorionic hemorrhage causing vaginal bleeding earlier in . Pyelonephritis requiring hospitalization. Chlamydia vaginal infection with negative NUHA. Trichomonas vaginal infection and proteus UTI, treated. Recently diagnosed vaginal candidiasis, untreated. History of HSV on acyclovir, no active lesions. Primary Care Physician: LITO Martinez FMR OB H&P: Current - Care : 4 Para: 2013 Gestational age: 39.1 Due date: 04/04/20 Dating Criteria: LMP and 18.4 wk sono Course/Complications: Subchorionic hemorrhage, chlamydia, trich, candidiasis, pyelonephritis, hx of herpes - OB Labs Blood type: O RH: positive Antibody Screen: negative HIV: negative RPR: negative HepBsAg: negative Rubella: immune Gonorrhea: negative Chlamydia: negative 3 hour GTT: passed GBS: positive H&H: 10.6/32.7 Platelets: 232 - Anatomy Survey Anatomy survey: borderline enlarged cisterna magna FMR OB H&P: History - Past Medical History PMH: HSV - OB History OB History: 2 term , 1 spontaneous requiring blood transfusion - 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 History 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 History: Chlamydia infection, negative NUHA - Surgical History Sx History: Appendectomy - Social History Social History: denies T/A/D FMR OB H&P: Medications - Current Home Medications: Medication Instructions Recorded Confirmed Type Vitamin 1 tablet PO DAILY 01/05/16 03/29/20 History valACYclovir HCl [Valacyclovir] 1 tab PO DAILY 03/29/20 03/29/20 History Allergies/Adverse Reactions: Allergies Allergy/AdvReac Type Severity Reaction Status Date / Time Penicillins Allergy Intermediate Rash Verified 05/26/19 19:48 FMR OB H&P: ROS - Review of Systems General: denies: fever/chills, fatigue Eyes: denies: vision changes, double vision ENT: denies: rhinorrhea, sore throat Cardiovascular: denies: chest pain, edema Respiratory: denies: cough, shortness of breath Gastrointestinal: denies: nausea, vomiting, diarrhea Genitourinary (Female): reports: contractions, vaginal pressure. denies: vaginal bleeding Musculoskeletal: denies: pain, stiffness Neurologic: denies: headache Integumentary: denies: rash, lesions Hematologic/Lymphatic: denies: prolonged or excessive bleeding FMR OB H&P: Vital Signs - Maternal Vital signs: BP 120/66, HR 85 - Heart Tones Baseline: 140 Variability: moderate Acceleration: present Deceleration: absent Category: category 1 [place] contractions every: 2-5min FMR OB H&P: Physical Exam - Physical Exam General: NAD, awake, alert and oriented HEENT: normocephalic and atraumatic, grossly normal vision, grossly normal hearing Neck: supple, FROM Heart: RRR, normal S1/S2 General: CTAB, no respiratory distress Abdomen: soft, gravid, non-tender Musculoskeletal: normal gait and station, FROM in all four extremities Neurological: cranial nerves II through XII intact, no focal deficit Skin: no rash, no jaundice Lymphatic: no unusual bruising or bleeding Psychiatric: intact recent and remote memory, normal mood and affect - Pelvic Exam Vulva: normal hair distribution Deviation from normal: no active HSV lesions, thick white discharge Cervix: no lesions SVE: 1/0/-3 Presentation: vertex confirmed with bedside sono FMR OB H&P: Results - Labs Lab results: Laboratory Results - last 24 hr 03/29/20 21:27 WBC 8.8 RBC 3.93 L Hgb 10.8 L Hct 32.6 L MCV 82.8 MCH 27.5 MCHC 33.2 RDW 14.6 H Plt Count 229 MPV 7.6 FMR OB H&P: A/P Discussion: Date/Time: 03/29/202 20 yo @ 39.1 wks who presents for eIOL eIOL - SVE 1/0/-3 - FHT cat 1: 140/mod eliana/ +accel - ctx: has coupling of 3 contractions together and then 5min until next grouping - 50mcg oral cytotec given around 2230 - Monitor VS, FHT - Serial SVE, management pending progression GBS+ - pcn allergy: states she is unsure of reaction, happened when she was a child - will start cefazolin Hx of HSV -has been taking acyclovir -no active lesions Vaginal Candidiasis -can treat after delivery Enlarged cistern magna on Anatomy scan -baby will need US before discharge This H&P was discussed with Dr. Salinas and Dr. Gama who agree with the above documentation and plan. Addendum - Attending - Attending Attestation Date/Time: 03/30/202034 I personally evaluated the patient and discussed the management with Dr. Dwyer last night. I agree with the History, Examination, Assessment and Plan documented above with any addition or exceptions noted below.
[2020-03-29 22:20] LABS: Syphilis Antibody Nonreactive (Nonreactive); Syphilis Antibody Index 0.03 S/CO (<1.00 Non-Reactive)
[2020-03-29] MEDS ORDERED: Misoprostol 100 MCG TAB PO SCH (22:45)
[2020-03-29] MEDS ORDERED: CEFAZOLIN 2 GM in Premix Bag 1 BAG IVPB SCH (22:45)
[2020-03-29 23:44] LABS: HBSAg Index 0.18 S/CO (0-0.99); Hep B Surf Ag Non-Reactive S/CO (NonReactive)
[2020-03-30] MEDS ORDERED: Fentanyl 4 mcg/Bup 0.1% Cadd 100 ML ONE ×3 (00:41→10:11)
[2020-03-30] MEDS: Lactated Ringer's 1,000 ML IV SCH ×4 (01:20→15:28)
[2020-03-30] MEDS ORDERED: ePHEDrine 50 MG/ML VIAL SLOW IVP PRN (01:35)
[2020-03-30] MEDS ORDERED: Naloxone HCl 0.4 mg/ml Vial IVP PRN ×2 (01:35)
[2020-03-30] MEDS ORDERED: Lactated Ringer's 500 ML IV PRN (01:35)
[2020-03-30] MEDS ORDERED: Promethazine HCl 25 MG/ML VIAL IM PRN (01:35)
[2020-03-30] MEDS ORDERED: diphenhydrAMINE 50 MG/ML VIAL IVP PRN (01:35)
[2020-03-30] MEDS ORDERED: Acetaminophen 325 MG TAB PO PRN (01:35)
[2020-03-30] MEDS ORDERED: Ondansetron PF 4 MG/2 ML Vial IVP PRN ×2 (01:35→18:27)
[2020-03-30] MEDS ORDERED: Fentanyl 4 mcg/Bupivacaine 0.1% Cassette 100 ML EPIDURAL SCH (01:45)
[2020-03-30] MEDS ORDERED: Communication Order-Pharmacy FS SCH (01:45)
--- NOTE | 2020-03-30 02:38 | PDOC.LDPN ---
Labor & Delivery Progress Note - Subjective Subjective: comfortable - Objective Vital signs reviewed and normal: yes General: NAD SVE: 3/0/-2 FHT: category 1, variability present [place] contractions every: 2-3min -: 20 yo @ 39.1 wks who presents for eIOL eIOL - SVE 1/0/-3 - FHT cat 1: 140/mod eliana/ +accel - ctx: has coupling of 3 contractions together and then 5min until next grouping - 50mcg oral cytotec given around 2230 - epidural placed @ 0130 - 3/0/-2 @ 0215, ctx q2-3min. [place] 6. Will wait to see if contractions space out to start pit GBS+ - pcn allergy: states she is unsure of reaction, happened when she was a child - will start cefazolin Hx of HSV -has been taking acyclovir -no active lesions Vaginal Candidiasis -can treat after delivery Enlarged cistern magna on Anatomy scan -baby will need US before discharge This H&P was discussed with Dr. Salinas and Dr. Gama who agree with the above documentation and plan.
[2020-03-30] MEDS ORDERED: NS w/ Oxytocin 30 units 500 ML IVPB SCH (05:00)
[2020-03-30] MEDS ORDERED: CEFAZOLIN 1 GM VIAL SLOW IVP SCH (06:00)
--- NOTE | 2020-03-30 06:42 | PDOC.LDPN ---
Labor & Delivery Progress Note - Subjective Subjective: comfortable - Objective Vital signs reviewed and normal: yes General: NAD Dilation: 3 Effacement: 25% Station: -2 FHT: category 1, variability present [place] contractions every: q2-4 -: 20 yo @ 39.1 wks who presents for eIOL eIOL SVE 1/0/-3 @ 2145, FHT cat 1/140/mod/+accel, 50mcg PO cytotec @ [address] @ 0130 SVE 05/28/-2 @ 0215, ctx too frequent for additional cytotec SVE 05/28/-2 @ 0440, pitocin started Cat 1 strip, FHT 125/mod/+accel, one variable around 0500 now resolved VS reviewed and appropriate Recheck SVE 0840 or sooner if clinically indicated GBS+ - pcn allergy: states she is unsure of reaction, happened when she was a child - will start cefazolin Hx of HSV -has been taking acyclovir -no active lesions Vaginal Candidiasis -can treat after delivery Enlarged cistern magna on Anatomy scan -baby will need US before discharge Plan discussed with Dr. Perez and to be reviewed with Dr. Nino. Addendum - Attending - Attending Attestation Date/Time: 03/30/20 0922 I personally evaluated the patient and discussed the management with Dr. Montano I agree with the History, Examination, Assessment and Plan documented above with any addition or exceptions noted below. 20 yo female at 39.3 wks by LMP/18.4 wk sono here for eIOL Patient currently tolerating labor well. Cat 1 tracing. Still with unfavorable cervix on pitocin. Will place balloon. with multiple complication and risk. - sIUP: Cephalic. Recorder reviewed. - incomplete care: Started care in 2T. Good dating. - GBS bacteruria: Pen allergy. Current strain with inducible resistance. Currently treated with cephalosporin. Adequately treated at this time. - hx of bacteruria x 2 - hx of pyelo: Cx trended throughout . Unsure if ppx antibx used after resolution of disease. Would benefit from pp ppx x 4 to 6 wks vs urine culture trending. Need to discuss pp. - hx of HSV2: Primary outbreak 2013. 1 outbreak this . Has been on ppx since 36 wks. Continue until delivery. No lesions on exam prior to induction. - Fetus with persistently enlarge CM on US. Will need neuro US on DOL #1. - STIs this : Treated. NUHA negative. Unsure if 3T performed. PPX in after delivery. Continue close follow up [facility]
--- NOTE | 2020-03-30 08:51 | PDOC.LDPN ---
Labor & Delivery Progress Note - Subjective Subjective: comfortable, no concerns - Objective Vital signs reviewed and normal: yes General: NAD, resting Uterine fundus: non tender SVE: FHT: category 1, variability present [place] contractions every: 2-4 -: eIOL - SVE /3 @ 2145, FHT cat 1/140/mod/+accel, 50mcg PO cytotec @ 2230 - Epidural in place @ 0130 - SVE @ 0215, ctx too frequent for additional cytotec - SVE @ 0440, pitocin started - 0630 Cat 1 strip, FHT 125/mod/+accel, one variable around 0500 now resolved - SVE @ 0840 , head not well engaged, FHT 130/mod/+accel, one variable now resolved VS reviewed and appropriate Continue pitocin, start maternal position changes Recheck SVE in 3-4 hours. GBS+ - pcn allergy: states she is unsure of reaction, happened when she was a child - will start cefazolin Hx of HSV -has been taking acyclovir -no active lesions Vaginal Candidiasis -can treat after delivery Enlarged cistern magna on Anatomy scan -baby will need US before discharge Plan discussed with Dr. Perez and to be reviewed with Dr. Nino. Addendum - Attending - Attending Attestation Date/Time: 03/30/20 0915 I personally evaluated the patient and discussed the management with Dr. Montano I agree with the History, Examination, Assessment and Plan documented above with any addition or exceptions noted below. Place [employer] balloon. Elisabet
[2020-03-30] MEDS ORDERED: valACYclovir 500 MG TAB PO SCH (09:30)
--- NOTE | 2020-03-30 10:45 | PDOC.LDPN ---
Labor & Delivery Progress Note - Subjective Subjective: comfortable, no concerns - Objective Vital signs reviewed and normal: yes General: NAD, resting Uterine fundus: non tender SVE: 3.5/50/-2 FHT: category 1, variability present [place] contractions every: q2-4 min -: eIOL @ 39.3 - SVE 1/0/-3 @ 2145 on 03/30, FHT cat 1/140/mod/+accel, 50mcg PO cytotec @ 2230 - Epidural in place @ 0130 - SVE 2 @ 0215, ctx too frequent for additional cytotec - SVE 2 @ 0440, pitocin started - 0630 Cat 1 strip, FHT 125/mod/+accel, one variable around 0500 now resolved - SVE @ 0840 05/28/-2, head not well engaged, FHT 130/mod/+accel, one variable now resolved - SVE @ 1030 3.5/50/-2, cook balloon placed, FHT 130/mod/+accel VS reviewed and appropriate Continue pitocin as tolerated per protocol Recheck SVE in 4 hours or sooner if balloon out of place [place]-care with all cervical checks due to hx of multiple infections GBS+ - pcn allergy: states she is unsure of reaction, happened when she was a child - will start cefazolin - erythromycin resistant in outpatient setting Hx of HSV - positive for HSV2 by culture in 2013 - history of active lesion in early (secondary outbreak) -has been taking acyclovir -no active lesions Vaginal Candidiasis -can treat after delivery 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 coli 02/2020, required hospitalization for treatment. - f/u urine cx 03/12/20 positive for GBS only, no E. coli Plan discussed with Dr. Chris Nino. Addendum - Attending - Attending Attestation Date/Time: 03/30/20 1117 I personally evaluated the patient and discussed the management with Dr. Montano I agree with the History, Examination, Assessment and Plan documented above with any addition or exceptions noted below. Successful balloon placement. Continue to monitor closely. Elisabet
[2020-03-30] MEDS: ceFAZolin 1 GM/D5W 1 GM in Premix Bag 1 BAG IVPB SCH ×2 (11:19→19:05)
--- NOTE | 2020-03-30 15:00 | PDOC.LDPN ---
Labor & Delivery Progress Note - Subjective Subjective: vaginal pressure - Objective Abnormal vital signs: few low BPs, asymptomatic General: other (vomiting) Uterine fundus: palpable contractions SVE: 6/100/+1 FHT: category 2, acceleration absent, absent or minimal variables (minimal variability) [place] contractions every: 2-4 AROM: clear fluid (SROM) IUPC placed: yes FSE placed: yes -: eIOL @ 39.3 - SVE 1/0/-3 @ 2145 on 03/30, FHT cat 1/140/mod/+accel, 50mcg PO cytotec @ 2230 - Epidural in place @ 0130 - SVE 05/28/-2 @ 0215, ctx too frequent for additional cytotec - SVE 2 @ 0440, pitocin started - 0630 Cat 1 strip, FHT 125/mod/+accel, one variable around 0500 now resolved - SVE @ 0840 /25/-2, head not well engaged, FHT 130/mod/+accel, one variable now resolved - SVE @ 1030 3.5/50/-2, cook balloon placed, FHT 130/mod/+accel - 1326 SROM clear fluid, balloon out, 5/100/-1 per nursing - 1445 minimal variability without accels, persistent cat 2 strip, baseline 130; + accel with scalp stimulation; FSE, IUPC placed, SVE VS reviewed - intermittently low BPs, consider ephedrine if persistent Hold pitocin, continue to monitor strip closely for variability [facility]-care with all cervical checks due to hx of multiple infections GBS+ - pcn allergy: states she is unsure of reaction, happened when she was a child - ancef q8h - erythromycin resistant in outpatient setting 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 coli 02/2020, required hospitalization for treatment. - f/u urine cx 03/12/20 positive for GBS only, no E. coli Plan discussed with Dr. Morillo and Dr. Nino. Allen Keller, DO, PGY-1 Addendum - Attending - Attending Attestation Date/Time: 03/30/20 4770 I personally evaluated the patient and discussed the management with Dr. Montano I agree with the History, Examination, Assessment and Plan documented above with any addition or exceptions noted below. Cat 2 tracing. Give bolus. Stop pitocin. Give turb prn. FSE and IUPC placed. Monitor very closely. R/B/A discussed in regards to delivery and VAVD. Concern for abruption due to blood noted on exam and tracing. Fetus will actively respond to manual stimulation. Elisabet
--- NOTE | 2020-03-30 16:31 | PDOC.BPN ---
<Renate Keller - Last Filed: 03/30/20 16:22> - Brief Progress Note Encounter Date: 03/30/20 Encounter Time: 15:00 Pt uncomfortable with contractions, described as pressure. SVE 7/100/+1 @ 1520 with asymmetric dilation of the cervix, suspect asynclitic positioning. FHT monitoring with continued minimal variability, tachysystole. Few late decelerations with minimal response to position changes, 500 cc bolus. Terbutaline 0.25mg subcutaneous given for tachysystole, improved variability. FHT responsive to scalp stimulation. Concern for placental abruption due to persistent cat 2 strip with minimal variability, occasional late decelerations, and bleeding appreciated on vaginal exam. Continue to monitor strip very closely. Given rapid cervical change, if fetus tolerates will proceed with vaginal delivery, would likely need vacuum assistance. If fetus not tolerating contractions, will proceed with . Discussed with patient, she is agreeable at this time. Plan discussed with Dr. Nino. DO [place], PGY-1 <Jennie Nino - Last Filed: 03/31/20 10:26> - Brief Progress Note Agree with above. Fetus still with good stimulated response. Will repeat SVE in 30 mins. If able to proceed with VAVD will but otherwise will call for delivery. Patient aware and agrees with the plan. Nursery staff notified and will be present at delivery. Elisabet
[2020-03-30] MEDS ORDERED: Misoprostol 200 MCG TAB ONE ×3 (16:48→16:54)
[2020-03-30] MEDS ORDERED: Lidocaine 1% (PF) 30 ML VIAL ONE (16:57)
[2020-03-30] MEDS ORDERED: Ketorolac Tromethamine 30 MG/ML VIAL IVP SCH (17:30)
[2020-03-30] MEDS ORDERED: Gentamicin 20 MG/2 ML PF (Neonates) IVPB SCH (18:02)
[2020-03-30] MEDS ORDERED: Fluconazole 100 MG TAB PO SCH (18:15)
[2020-03-30] MEDS ORDERED: Milk Of Magnesia 30 ML UDCUP PO PRN (18:27)
[2020-03-30] MEDS ORDERED: Bisacodyl 10 MG SUPP PR PRN (18:27)
[2020-03-30] MEDS ORDERED: Lanolin Ointment 7 GM TUBE TOP PRN (18:27)
[2020-03-30] MEDS ORDERED: hydrALAZINE 20 MG/ML VIAL SLOW IVP PRN (18:27)
[2020-03-30] MEDS ORDERED: Preparation H Ointment 28 GM TUBE PR PRN (18:27)
[2020-03-30] MEDS ORDERED: diphenhydrAMINE 25 MG CAP PO PRN (18:27)
[2020-03-30] MEDS ORDERED: NS / Oxytocin 40 units/1000ml 1,000 ML IV SCH (18:27)
[2020-03-30] MEDS: Docusate Calcium (SURFAK) 240 MG CAP PO SCH (21:23)
[2020-03-30] MEDS: Ibuprofen 800 MG TAB PO SCH (21:24)
[2020-03-31] MEDS ORDERED: ceFAZolin 1 GM/D5W 1 GM in Premix Bag 1 BAG IVPB SCH (03:00)
[2020-03-31] MEDS: Ibuprofen 800 MG TAB PO SCH ×3 (05:34→21:36)
[2020-03-31] MEDS: Benzocaine-Menthol 82.5 ML CAN TOP PRN (05:36)
--- NOTE | 2020-03-31 06:46 | PDOC.PP ---
Post Progress Note Post Day #: 1 Subjective: Somewhat sore this morning. Appears tired. PO intake tolerated: yes Flatus: yes Ambulation: yes Vital Signs (12 hours) Temp Pulse Resp BP Pulse Ox 03/31/20 04:30 98.8 F 75 18 109/53 L 98 03/30/20 23:05 98 F 89 18 120/76 98 03/30/20 21:50 98 F 89 18 123/78 99 03/30/20 20:50 99 F 94 18 101/51 L 99 03/30/20 19:50 99.1 F 89 18 111/57 L 99 Weight Weight 94.347 kg - Physical Examination General: NAD Cardiovascular: no m/r/g, RRR Respiratory: clear to auscultation bilaterally, non-labored breathing Abdominal: + bowel sounds, lochia (downtrending), no distention, appropriately TTP Fundus firm & at: well above umbilicus Neurological: no gross focal deficits Psychiatric: A&Ox3, normal affect Result Diagrams: 03/31/20 07:04 Additional Labs: Post Labs Hep Bs Antigen Non-Reactive S/CO (NonReactive) 03/29/20 21:27 Blood Type O POSITIVE 03/29/20 21:27 - Assessment/Plan 20 yo G4 now P3013 delivered at 39.2 PPD #1 s/p VAVD - hemoglobin pending - meeting milestones - continue pain control with ibuprofen endometritis - Maternal temp 100.5 after delivery - gentamicin x1 given - treated for GBS positive cefazolin x2 prior to delivery Small placental abruption during delivery - placenta path pending Nica infxn - treated w/ fluconazole x1 Dispo: monitor today due to GBS + status and maternal temp. Inpatient, . Addendum - Attending - Attending Attestation Date/Time: 03/31/20 1036 I personally evaluated the patient and discussed the management with Dr. Martinez I agree with the History, Examination, Assessment and Plan documented above with any addition or exceptions noted below. 20 yo now female s/p VAVD on 03/30/20 due to placental abruption, NRFHT, and poor maternal effort. PPD #1 Patient doing well. No acute events overnight. Completed antibx dosing for chorio. - s/p VAVD: Meeting milestones. Pain controlled PO. Still not up and ambulating well. Continue to encourage throughout the day. - incomplete care: Has assistance. - GBS bacteruria: Adequate treatment intrapartum. - Maternal fever of 100.5 shortly after delivery along with maternal tachycardia. Will dx as chorio. Treated. No complications pp. Infant doing well. - hx of bacteruria x 2 - hx of pyelo: Risk for recurrence. Would benefit from 4 to 6 wk of ppx or urine cx screening. Will need to discuss with PCP and patient for plan. - hx of HSV2: No active lesions - STIs this : Treated. NUHA negative. Continue close follow up ABrayMD
[2020-03-31 07:19] LABS: Mean Corpuscular HGB CONC 32.7 g/dL (32.0-36.0); Mean Corpuscular Hemoglobin 27.8 pg (27.0-31.0); Mean Platelet Volume 7.2 fL (7.4-10.4); Platelet Count 195 thou/uL (130-400); RBC Distribution Width 14.5 % (11.5-14.5); Red Blood Cell (RBC) Count 3.23 mill/uL (4.20-5.40); White Blood Cell (WBC) Count 10.9 thou/uL (4.8-10.8)
[2020-03-31] MEDS: Ferrous Sulfate 325 MG TAB PO SCH ×2 (08:23→18:16)
[2020-03-31] MEDS: Docusate Calcium (SURFAK) 240 MG CAP PO SCH ×2 (08:23→21:36)
[2020-03-31] MEDS: Prenatal Vitamin 1 TAB PO SCH (08:23)
[2020-03-31] MEDS ORDERED: Prenatal Vitamin 1 TAB PO SCH (09:00)
[2020-03-31] MEDS ORDERED: Adacel (T-DAP) 0.5 ML SYRINGE IM ONE (09:00)
[2020-03-31] MEDS ORDERED: valACYclovir 500 MG TAB PO SCH (09:00)
[2020-03-31] MEDS ORDERED: HYDROcodone/Acetaminophen 5/325 mg Tablet PO SCH (20:15)
[2020-04-01] MEDS: Ibuprofen 800 MG TAB PO SCH ×2 (05:09→14:20)
--- NOTE | 2020-04-01 06:49 | PDOC.PP ---
Post Progress Note Post Day #: 2 Subjective: feeling well. Had some cramping yesterday. PO intake tolerated: yes Flatus: yes Ambulation: yes Vital Signs (12 hours) Temp Pulse Resp BP Pulse Ox 04/01/20 05:10 98.1 F 75 16 121/78 03/31/20 23:55 98.7 F 03/31/20 19:50 97.6 F 71 16 115/64 97 Weight Weight 94.347 kg - Physical Examination General: NAD Cardiovascular: RRR Respiratory: non-labored breathing Abdominal: + bowel sounds, lochia (downtrending), no distention, appropriately TTP Fundus firm & at: level of umbilicus Neurological: no gross focal deficits Psychiatric: A&Ox3, normal affect Result Diagrams: 03/31/20 07:04 Additional Labs: Post Labs Hep Bs Antigen Non-Reactive S/CO (NonReactive) 03/29/20 21:27 Blood Type O POSITIVE 03/29/20 21:27 - Assessment/Plan 20 yo G4 now P3013 delivered at 39.2 PPD #2 s/p VAVD - hemoglobin stable - meeting milestones - continue pain control with ibuprofen - 2nd degree perineal laceration healing well Chorioamnionitis, treated - no fevers since delivery Small placental abruption - placenta path pending Hx of pyelo (E.coli) during - discussed ppx antibx vs screening cultures - will proceed with cultures in clinic Contraception - nexplanon Dispo: stable for discharge today. Since had pyelo in , will repeat urine culture at 2 week visit. Addendum - Attending - Attending Attestation Date/Time: 04/01/20 1141 I personally evaluated the patient and discussed the management with Dr. Martinez I agree with the History, Examination, Assessment and Plan documented above with any addition or exceptions noted below. PPD#2 20 yo female s/p VAVD on 03/30/20 complicated by placental abruption, NRFHTs, and IAI Patient doing well. No complaints or concerns today. Bottle feeding. No problems with voiding or vaginal edema. Laceration healing well. Pain controlled with PO meds. Lochia minimal. Ok to d/c to home today. Follow up in 2 wks. Will need to trend urine cultures due to hx of pyleo in and frequent bacterurias. Would like Nexplanon for contraception. Monitor for preE and PPD. ABrayMD
[2020-04-01 08:31] VITALS: BP 110/69; TEMP 98.2
[2020-04-01] MEDS: Docusate Calcium (SURFAK) 240 MG CAP PO SCH (09:40)
[2020-04-01] MEDS: Prenatal Vitamin 1 TAB PO SCH (09:40)
[2020-04-01] MEDS: Ferrous Sulfate 325 MG TAB PO SCH (09:40)
--- NOTE | 2020-04-01 11:56 | OP ---
DATE OF PROCEDURE: 03/30/2020 PROCEDURE PERFORMED: Vacuum-assisted vaginal delivery. DELIVERING SURGEONS: 1. Geri Martinez MD. 2. Renate Keller DO. ATTENDING: Jennie Nino M.D. PREOPERATIVE DIAGNOSES: 1. Term intrauterine . 2. GBS positive. 3. History of HSV, taking acyclovir prophylaxis. 4. Enlarged cisterna magna on intrauterine anatomy scan. POSTOPERATIVE DIAGNOSES: 1. Term intrauterine , delivered. 2. GBS positive. 3. History of HSV, taking acyclovir prophylaxis. 4. Enlarged cisterna magna on intrauterine anatomy scan. ANESTHESIA: Epidural. QUANTITATIVE BLOOD LOSS: 305 mL. INDICATIONS FOR PROCEDURE: A 20-year-old G4, P2-0-1-2 at 39.2 WGA by LMP consistent with 18.4 weeks sono, presented to Labor and Delivery for elective induction. She had a prolonged induction complicated by small placental abruption. DESCRIPTION OF PROCEDURE: After risks, benefits, and alternatives were explained to the patient, she gave informed consent. Due to minimal variability on the heart strip and prolonged active phase of labor, vacuum-assisted vaginal delivery was accomplished on 03/30/2020 at 1649 hours. The vacuum was applied for pushing with two contractions. There were no pop offs. The 's head was delivered and one nuchal cord was noted, which was then reduced. Anterior shoulder and remainder of the body were delivered. The vacuum was removed. Cord was immediately clamped and cut due to the risk to baby and then given to the nursing team at the warmer. Vagina and cervix were inspected and was found to be a second-degree perineal laceration, which was repaired with 2-0 Vicryl in the usual fashion after obtaining adequate anesthesia with local lidocaine 1%. The placenta was delivered spontaneously in a Schultze presentation and was noted to have a small clot of blood on the maternal side. The placenta was otherwise intact with a 3-vessel cord noted. Placenta was sent to Pathology. The patient tolerated the procedure well. Apgars were 6 and 9 at one and five minutes of life. required blow-by for 1 minute. Job ID: [id number]
[2020-04-01] MEDS: Benzocaine-Menthol 82.5 ML CAN TOP PRN (14:22)
== END 2020-04-01 15:05 | disposition home or self-care (01) | DRG 805 ==
LOC: L&D 19:16 → 3SW 03-30 20:34
PROVIDERS: ADMIT Family Medicine; ATTEND Family Medicine
PROC: 10D07Z6 Extraction of Products of Conception, Vacuum, Via Natural or Artificial Opening (ICD-10-PCS; principal; 2020-03-30)
PROC: 10H07YZ Insertion of Other Device into Products of Conception, Via Natural or Artificial Opening (ICD-10-PCS; 2020-03-30)
PROC: 10907ZC Drainage of Amniotic Fluid, Therapeutic from Products of Conception, Via Natural or Artificial Opening (ICD-10-PCS; 2020-03-30)
PROC: 3E0P7VZ Introduction of Hormone into Female Reproductive, Via Natural or Artificial Opening (ICD-10-PCS; 2020-03-30)
PROC: 3E033VJ Introduction of Other Hormone into Peripheral Vein, Percutaneous Approach (ICD-10-PCS; 2020-03-30)
DX: O99.824 Streptococcus B carrier state complicating childbirth (principal); O41.1230 Chorioamnionitis, third trimester, not applicable or unspecified; Z37.0 Single live birth; O98.52 Other viral diseases complicating childbirth; O98.82 Other maternal infectious and parasitic diseases complicating childbirth; O75.2 Pyrexia during labor, not elsewhere classified; Z20.822 Contact with and (suspected) exposure to COVID-19; O75.3 Other infection during labor; O45.93 Premature separation of placenta, unspecified, third trimester; B00.9 Herpesviral infection, unspecified; B37.3 Candidiasis of vulva and vagina; O76 Abnormality in fetal heart rate and rhythm complicating labor and delivery; Z3A.39 39 weeks gestation of pregnancy
CPT/HCPCS: 36415; 51702; 85027; 86780; 86850; 86900; 86901; 87340; 88307; J0690; J1580; J1885; J2405; J2590; J3105; J3490

== ENCOUNTER 2021-03-11 17:00 | Emergency (ER) | payer OTHER ==
[2021-03-11 19:40] LABS: #Eosinphils 0.1 thou/uL (0.0-0.7); #Lymphocytes 2.8 thou/uL (1.20-3.40); #Monocytes 0.3 thou/uL (0.11-0.59); #Neutrophils 3.8 thou/uL (1.40-6.50); %Basophils 0.6 % (0.0-1.0); %Eosinophils 0.8 % (0.0-10.0); %Lymphocytes 39.8 % (21.0-51.0); %Monocytes 4.7 % (0.0-10.0); %Neutrophils 54.1 % (42.0-75.0); Hemoglobin 14.4 g/dL (12.0-16.0); Mean Corpuscular HGB CONC 32.3 g/dL (32.0-36.0); Mean Corpuscular Hemoglobin 30.3 pg (27.0-31.0); Mean Corpuscular Volume 93.8 fL (78.0-98.0); Mean Platelet Volume 6.4 fL (7.4-10.4); Platelet Count 295 thou/uL (130-400); RBC Distribution Width 13.4 % (11.5-14.5); Red Blood Cell (RBC) Count 4.76 mill/uL (4.20-5.40)
[2021-03-11 19:52] LABS: BHCG - Serum Negative (NEGATIVE); Pregs Control Background? CLEAR/WHITE (CLR/WHITE); Pregs Control Bar Appear? YES (CONTROL BAR)
[2021-03-11 20:02] LABS: ALT (SGPT) 10 U/L (8-55); AST (SGOT) 13 U/L (5-34); Albumin 4.2 g/dL (3.5-5.0); Alkaline Phosphatase 98 U/L (40-110); Anion Gap 12 mmol/L (10-20); BUN (Urea Nitrogen) 6 mg/dL (7.0-18.7); Bilirubin, Total 0.3 mg/dL (0.2-1.2); Calc. Creatinine Clearance 0 mL/min (70-130); Calcium 9.4 mg/dL (7.8-10.44); Carbon Dioxide 26 mmol/L (22-29); Chloride 104 mmol/L (98-107); Globulin 3.9 g/dL (2.4-3.5); Glucose 87 mg/dL (70-105); Potassium 4.2 mmol/L (3.5-5.1); Protein, Total 8.1 g/dL (6.0-8.3); Sodium 138 mmol/L (136-145)
[2021-03-12 08:54] LABS: SARS-CoV-2 PCR by NAA Not Detected (NotDetected)
== END 2021-03-11 20:47 | disposition home or self-care (01) ==
LOC: ERS 17:00
DX: J40 Bronchitis, not specified as acute or chronic (principal); R04.2 Hemoptysis; Z20.822 Contact with and (suspected) exposure to COVID-19; Z77.22 Contact with and (suspected) exposure to environmental tobacco smoke (acute) (chronic)
CPT/HCPCS: 36415; 71045; 80053; 84484; 84703; 85025; 85379; 93005; U0003; U0005

== ENCOUNTER 2022-04-07 08:59 | Emergency (ER) | payer OTHER ==
[2022-04-07] MEDS ORDERED: Ketorolac Tromethamine 30 MG/ML VIAL ONE (10:18)
== END 2022-04-07 10:53 | disposition home or self-care (01) ==
LOC: ERS 08:59
DX: R07.89 Other chest pain (principal)
CPT/HCPCS: 71045; 93005; 96372; J1885

== ENCOUNTER 2023-02-09 19:46 | Emergency (ER) | payer OTHER | END 2023-02-09 20:36 | disposition home or self-care (01) | LOC: ERS 19:46 | DX: A60.04 Herpesviral vulvovaginitis (principal) | CPT/HCPCS: 99283 ==

== ENCOUNTER 2024-10-02 02:03 | Emergency (ER) | payer SELFPAY | END 2024-10-02 03:15 | disposition home or self-care (01) | LOC: ERS 02:03 | DX: K08.89 Other specified disorders of teeth and supporting structures (principal) | CPT/HCPCS: 99282 ==

== ENCOUNTER 2024-10-22 14:16 | Emergency (ER) | payer SELFPAY ==
[2024-10-22 17:24] LABS: BHCG - Serum Negative (NEGATIVE); Pregs Control Background? CLEAR/WHITE (CLR/WHITE); Pregs Control Bar Appear? YES (CONTROL BAR)
[2024-10-22 17:51] LABS: Bacteria/HPF None Seen HPF (None Seen); CAUTI Indications for Culture Dysuria,urgency,freq; Glucose, Urine (Dipstick) Normal (Negative); Leukocyte 25 Leu/uL (Negative); Protein, Urine (Dipstick) Negative (Neg-Trace); RBC/HPF 0-3 HPF (0-3); Specific Gravity, Urine 1.026 (1.002-1.036)
[2024-10-22 17:55] LABS: Urine Culture Reflex No No
== END 2024-10-22 18:24 | disposition home or self-care (01) ==
LOC: ERS 14:16
DX: R10.9 Unspecified abdominal pain (principal)
CPT/HCPCS: 81001; 84703; 99284; Q0162